=== PATIENT | female | born 1990 | race Caucasian/White ===

== ENCOUNTER 2017-03-02 12:29 | Emergency (ER) | payer OTHER, MEDICAID ==
[~2017-03-02] VITALS: Ht 162.6 cm; Wt 64.0 kg
[2017-03-02 12:44] VITALS: BP 121/67; PULSE 66; RESP 16; TEMP 98.1; O2SAT 100
[2017-03-02] MEDS ORDERED: ACETAMINOPHEN 1000 MG/100 ML 100 ML IV ONE (13:30)
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
[2017-03-02 14:29] VITALS: RESP 17
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
== END 2017-03-02 16:24 | disposition home or self-care (01) ==
LOC: NEPD 12:29
DX: M54.9 Dorsalgia, unspecified (principal); R51 Headache; V43.52XA Car driver injured in collision with other type car in traffic accident, initial encounter
CPT/HCPCS: 70450; 72072; 72110; 72125; 84702; 99284; J0131